=== PATIENT | male | born 1960 | race Hispanic/Latino ===

== ENCOUNTER 2021-04-12 15:04 | Emergency (ER) | payer OTHER ==
[~2021-04-12] VITALS: Ht 165.1 cm; Wt 83.9 kg
[2021-04-12 18:30] VITALS: BP 150/75
== END 2021-04-12 18:30 | disposition home or self-care (01) | DRG 914 ==
LOC: ED 15:04
DX: S68.620A Partial traumatic transphalangeal amputation of right index finger, initial encounter (principal); I10 Essential (primary) hypertension; W23.0XXA Caught, crushed, jammed, or pinched between moving objects, initial encounter; Y93.16 Activity, rowing, canoeing, kayaking, rafting and tubing; Y92.828 Other wilderness area as the place of occurrence of the external cause